=== PATIENT | male | born 1970 | race Caucasian/White ===

== ENCOUNTER 2018-05-21 14:47 | Inpatient (IN) | payer OTHER ==
[~2018-05-21] VITALS: Ht 167.6 cm; Wt 86.2 kg
[~2018-05-21 14:47] MED LIST: ALBU90OI61; ALBU90OI61 INH; AMOCLA875 PO; ASPI81CH PO; CHOL10002; CODGUAEL PO; CYCL10; CYCL10 PO; ERYT.5TO OS; FISH1000 PO; FLUSAL2505 INH; HYDACE5 PO; HYDR1TAB94; IBUP600 PO; IBUP800 PO; NAPR250; NAPR500; NAPR500 PO; NAPR550 PO; Norco 10-325 T1 EACH PO; Norco 5-325 Ta1 EACH PO; OMEP40CA12 PO; OXYACE5T PO; Omeprazole20 M1 PO; PROM25 PO; RANI150EL; RXALBOI INH; RXCLIN PO; RXCODGUASY PO; SERT50; SERT50 PO; TIOT18 INH; TRAZ150T57; TRIA80TC; Zofran Odt8 MG SL
[2018-05-22] MEDS ORDERED: TRAZ50 PO (09:36)
[2018-05-23 07:17] LABS: BASOPHILS ABSOLUTE AUTO 0.03 K/mm3 (0.00-0.23); BASOPHILS PERCENT AUTO 0 % (0-2); EOSINOPHILS PERCENT AUTO 0 % (0-6); Hematocrit 37.9 % (37.0-53.0); Hemoglobin 12.9 g/dL (13.5-17.5); IMMATURE GRAN ABSOLUTE AUTO 0.14 K/mm3 (0.00-0.10); IMMATURE GRAN PERCENT AUTO 1 % (0-1); LYMPHOCYTES ABSOLUTE AUTO 1.96 K/mm3 (0.84-5.20); LYMPHOCYTES PERCENT AUTO 9 % (21-46); MONOCYTES ABSOLUTE AUTO 1.33 K/mm3 (0.16-1.47); MONOCYTES PERCENT AUTO 6 % (4-13); Mean Corpuscular HGB 29.6 pg (26.0-34.0); Mean Corpuscular Volume 87 fL (80-100); Mean Platelet Volume 10.1 fL (9.1-12.4); NEUTROPHILS ABSOLUTE AUTO 17.68 K/mm3 (1.96-9.15); NEUTROPHILS PERCENT AUTO 84 % (41-73); Platelet Count 266 K/mm3 (150-400); RDW Coefficient Variation 12.5 % (11.7-14.2); RDW Standard Deviation 39.8 fL (35.1-46.3); Red Blood Cell Count 4.36 M/mm3 (4.30-5.90); White Blood Cell Count 21.14 K/mm3 (4.00-11.30)
[2018-05-23 07:38] LABS: Anion Gap 9 mmol/L (6-16); Blood Urea Nitrogen 18 mg/dL (8-24); Bun/Creatinine Ratio 22.1 (12.0-20.0); CO2, Blood 23 mmol/L (21-32); Calcium, Blood 8.4 mg/dL (8.5-10.1); Chloride, Blood 101 mmol/L (98-108); Creatinine, Blood 0.82 mg/dL (0.60-1.20); Glomerular Filtration Rate >60 (60-); Glucose, Blood 135 mg/dL (70-99); Potassium, Blood 4.3 mmol/L (3.5-5.5); Sodium, Blood 133 mmol/L (136-145)
[2018-05-23] MEDS ORDERED: ASPI325 PO (16:54)
[2018-05-23] MEDS ORDERED: OXYC5 PO (16:55)
== END 2018-05-23 17:18 | disposition home or self-care (01) | DRG 483 ==
LOC: SURS 05-22 08:37 → PRE IP 05-22 11:00 → SURS 05-22 16:44
PROVIDERS: Orthopaedic Surgery
PROC: 0RRJ0J6 Replacement of Right Shoulder Joint with Synthetic Substitute, Humeral Surface, Open Approach (ICD-10-PCS; principal; 2018-05-22 11:00)
DX: M19.011 Primary osteoarthritis, right shoulder (principal); J44.9 Chronic obstructive pulmonary disease, unspecified; F32.9 Major depressive disorder, single episode, unspecified; F41.9 Anxiety disorder, unspecified; G47.33 Obstructive sleep apnea (adult) (pediatric)
CPT/HCPCS: 36415; 73030; 80048; 82947; 85025; 86850; 86900; 86901; 94640; 94760; 97110; 97161; 97165; 97535; C1776; G8978; G8979; G8980; G8987; G8988; G8989; J0171; J0690; J0735; J1885; J2001; J2250; J2370; J2405; J2710; J2795; J3010; J7120

== ENCOUNTER 2022-09-09 18:34 | Emergency (ER) | payer OTHER ==
[~2022-09-09] VITALS: Ht 167.6 cm; Wt 81.7 kg
[~2022-09-09 18:34] MED LIST changes: +ASPI325 PO; +OXYC5 PO; +TRAZ50 PO
== END 2022-09-10 00:25 | disposition home or self-care (01) ==
LOC: ER 18:34
DX: S82.65XA Nondisplaced fracture of lateral malleolus of left fibula, initial encounter for closed fracture (principal); X50.1XXA Overexertion from prolonged static or awkward postures, initial encounter; Z79.899 Other long term (current) drug therapy; Z87.891 Personal history of nicotine dependence
CPT/HCPCS: 73610; A9270; J1885